=== PATIENT | female | born 1980 | race African-American/Black ===

== ENCOUNTER 2017-01-20 21:34 | Emergency (ER) | payer MEDICAID ==
[2017-01-20 21:48] VITALS: BP 102/69; PULSE 69; RESP 16; TEMP 98.6; O2SAT 100
[2017-01-20] MEDS ORDERED: TRIAMCINOLONE ACETONIDE 40 MG/ML VIAL MISC ONE (22:06)
--- NOTE | 2017-01-20 22:27 | UCPHY ---
H & P Time Seen by Provider: 01/20/17 21:49 Patient Type: Established HPI/ROS: This patient presents with left knee arthralgia 8/10 intensity achy baseline sharp with walking. She has had similar pains in this knee in the past in the history of meniscal injury with arthroscopic P by Dr. Ernst. She has had improvement with a steroid injection in the past. It has been 2 years or so since the last steroid injection. She attributes some of the worsening pain to climbing 3 flights of stairs to her apartment where she lives on a daily basis. No acute injury. ROS: No fevers. No other constitutional symptoms. No other joint pain. No feeling of instability to the knee. No significant swelling. 7 point ROS is otherwise negative. Past Medical/Surgical History: She had a normal knee x-ray here few years ago. Meniscal injury to the left knee Ultrasound of L. lower extremity 3 years ago negative for Mendes cyst or DVT. Smoking Status: Never smoked Physical Exam: Physical Exam Vital signs are normal. General: Pleasant obese black female No acute distress HEENT: Atraumatic. Eyes: Pupils equal and react to light. Extraocular motions are intact. Lungs: No respiratory distress. Cardiac: Brisk capillary refill is intact throughout. Pulses are 2+ and symmetric in the affected extremity. Skin: No rash or pallor. Extremities: Atraumatic and normal except for left knee Left knee: Mild medial tenderness. Akanksha's is negative for laxity. Varus and valgus stress without significant pain or laxity. No significant effusion. No pain with lateral movement of her patella and no patellar crepitance. Neuro: Alert and oriented x3 with no sensorimotor deficits. Differential diagnosis: Meniscal arthropathy, doubt patellofemoral syndrome Constitutional: Initial Vital Signs Temperature (C) 37 C 01/20/17 21:46 Heart Rate 69 01/20/17 21:46 Respiratory Rate 16 01/20/17 21:46 Blood Pressure 102/69 01/20/17 21:46 O2 Sat (%) 100 01/20/17 21:46 O2 Delivery Mode Room Air Allergies/Adverse Reactions: No Known Allergies Allergy (Verified 11/08/14 18:05) Home Medications: Medication Instructions Recorded Levothyroxine 01/20/17 MDM/Departure - MDM Procedures: Steroid injection of knee: After verbal consent, chlorhexidine scrub with lateral approach with standard sterile precautions, I placed an 18 gauge needle in the left knee joint space with return of only a cm or 2 of fluid. This is blood tinged. I then injected 40 mg of Kenalog mixed with 10 mg of Marcaine the fluid easily without resistance. Patient tolerated this well. Band-Aid in the strep then applied. There were no complications. Patient is also treated with ibuprofen 600 mg. She will follow up with Dr. Ernst for any ongoing symptoms Medications Given: Discontinued Medications Triamcinolone Acetonide (Kenalog-40) 40 mg [facility] [place] ONE Stop: 01/20/17 22:07 Last Admin: 01/20/17 22:30 Dose: 40 mg - Depart Disposition: Home, Routine, Self-Care Clinical Impression: Arthralgia of knee, left Clinical Impression: (Ruled Out): Arthralgia of knee, right Condition: Good Instructions: Knee Pain (ED) Additional Instructions: Diagnosis: Left knee arthralgia Tonight you received 40 mg of Kenalog steroid and 10 mL of Marcaine anesthesia 2 your left knee. You should not have steroids for the next 6 months in that knee Plan: [place]en wrap Ice Continue with ibuprofen-600 mg per 6 hours Follow up with Dr. Ernst-orthopedic surgeon for any ongoing symptoms despite the plan. Referrals: NONE *PRIMARY CARE P,. [Primary Care Provider] - As per Instructions Patricia Ernst MD [Medical Doctor] - As per Instructions - PQRS PQRS Measurement: NA
== END 2017-01-20 22:39 | disposition home or self-care (01) ==
LOC: CED 21:34
PROC: 0S9D3ZZ Drainage of Left Knee Joint, Percutaneous Approach (ICD-10-PCS; principal; 2017-01-20)
PROC: 3E0U33Z Introduction of Anti-inflammatory into Joints, Percutaneous Approach (ICD-10-PCS; 2017-01-20)
DX: M25.562 Pain in left knee (principal)
CPT/HCPCS: 20610-PO; 99214-PO; G0463-PO; J3301

== ENCOUNTER 2017-02-27 22:33 | Emergency (ER) | payer MEDICAID ==
[2017-02-27 22:44] VITALS: BP 113/72; PULSE 77; RESP 16; TEMP 98.2; O2SAT 98
--- NOTE | 2017-02-27 22:46 | UCPHY ---
H & P Time Seen by Provider: 02/27/17 22:41 Patient Type: Established HPI/ROS: This patient has a right upper inner lip sore that she has never had before. She is uncertain if this is a canker sore something else and came in for evaluation. She reports moderate pain. Symptoms been present for few days. She thinks it is getting larger. ROS: No fevers. No dental pain. No lip lesions externally. 5 point ROS is otherwise negative. Past Medical/Surgical History: Otherwise healthy Smoking Status: Never smoked Physical Exam: Physical Exam Vital signs are normal. General: No acute distress HEENT: Intraoral exam: Patient has a 8 mm superficial abrasion to the right upper inner lip mucosa without any other intraoral lesions. There is no beefy redness, discharge, fluctuance or other abnormal findings. Eyes: Pupils equal and react to light. Extraocular motions are intact. Lungs: No respiratory distress. Cardiac: Brisk capillary refill is intact throughout. Skin: No rash or pallor. Neuro: Alert with no focal deficits appreciated. Constitutional: Initial Vital Signs Temperature (C) 36.8 C 02/27/17 22:41 Heart Rate 77 02/27/17 22:41 Respiratory Rate 16 02/27/17 22:41 Blood Pressure 113/72 02/27/17 22:41 O2 Sat (%) 98 02/27/17 22:41 O2 Delivery Mode Room Air Allergies/Adverse Reactions: No Known Allergies Allergy (Verified 11/08/14 18:05) Home Medications: Medication Instructions Recorded NK [No Known Home Meds] 02/27/17 Medical Decision Making ED Course/Re-evaluation: Findings are consistent with a simple aphthous ulcer. I counseled patient regarding this. Departure - Departure Disposition: Home, Routine, Self-Care Clinical Impression: Oral aphthous ulcer Condition: Good Instructions: Canker Sores (ED) Additional Instructions: Diagnosis: Canker sore Plan: Try supplemental Lysine. Try [id number] oral base canker sore medication to apply topically Avoid a lot of fruits that may be high and citric acid until symptoms resolve Symptoms should improve over the next 3-10 days Referrals: NONE *PRIMARY CARE P,. [Primary Care Provider] - As per Instructions - PQRS PQRS Measurement: NA
== END 2017-02-27 22:53 | disposition home or self-care (01) ==
LOC: CED 22:33
DX: K12.0 Recurrent oral aphthae (principal)
CPT/HCPCS: 99213-PO; G0463-PO

== ENCOUNTER 2017-03-25 22:06 | Emergency (ER) | payer MEDICAID ==
[2017-03-25 22:24] VITALS: BP 113/72; PULSE 73; RESP 16; TEMP 97.9; O2SAT 99
[2017-03-25] MEDS ORDERED: HYDROCODONE/APAP 5/325 TAB PO ONE (22:34)
--- NOTE | 2017-03-25 22:47 | UCPHY ---
H & P Time Seen by Provider: 03/25/17 22:31 Patient Type: Established HPI/ROS: This patient complains of pain and slight swelling the left fossa. She reports achiness to her knee associated with this 8/10 peak intensity currently moderate. Symptoms worsened a bit when she is walking. She took ibuprofen 11: 00 a.m. with partial improvement and notes no other exacerbating factors. She has associated history of meniscal injury in the same knee with intermittent knee effusions. Currently she denies any significant knee swelling ROS: No acute trauma. No fevers or chills. No posterior calf pain. No chest pain shortness of breath or lightheadedness. No heart palpitations. 7 point ROS is otherwise negative. Smoking Status: Never smoked Physical Exam: Physical Exam Vital signs are normal. General: Pleasant black female No acute distress Eyes: Pupils equal and react to light. Extraocular motions are intact. Lungs: No respiratory distress. Cardiac: Brisk capillary refill is intact throughout. Pulses are 2+ and symmetric in the affected extremity. Extremities: Atraumatic normal except for left knee Left knee: Patient has very mild swelling to the left popliteal fossa with tenderness. The anterior knee exam appears normal with no knee effusion. She retains full range of motion. There is no crepitance. No ligamentous instability with Akanksha's, varus or valgus stress. No warmth to touch. She has no calf swelling or tenderness. Homans is negative. Skin: No rash or pallor. Neuro: Alert with no sensorimotor deficits in the affected extremity. Constitutional: Initial Vital Signs Temperature (C) 36.6 C 03/25/17 22:12 Heart Rate 73 03/25/17 22:12 Respiratory Rate 16 03/25/17 22:12 Blood Pressure 113/72 03/25/17 22:12 O2 Sat (%) 99 03/25/17 22:12 O2 Delivery Mode Room Air Allergies/Adverse Reactions: No Known Allergies Allergy (Verified 03/25/17 22:19) Home Medications: Medication Instructions Recorded traMADol [Ultram 50 mg (*)] 50 - 100 mg PO Q4 PRN #20 tab 03/25/17 MDM/Departure - MDM Medications Given: Discontinued Medications Hydrocodone Bitart/Acetaminophen ([place] 5/325) 2 tab PO EDNOW ONE Stop: 03/25/17 22:35 Last Admin: 03/25/17 22:41 Dose: 2 tab - Depart Disposition: Home, Routine, Self-Care Clinical Impression: Bakers cyst Qualifiers: Laterality: left Qualified Code(s): M71.22 - Synovial cyst of popliteal space [ Mendes], left knee Condition: Good Instructions: Bakers Cyst (ED) Additional Instructions: Diagnosis: Mendes cyst left knee Plan: Ibuprofen-600 mg per 6 hours as needed and Tylenol or tramadol in addition. Limit activity as needed D[place]en wrap for comfort Call Dr. Ernst to arrange follow-up appointment Good the emergency department for any significant worsening despite the treatment plan Gentle stretches of her hamstring and quadriceps muscles each day Prescriptions: traMADol [Ultram 50 mg (*)] 50 - 100 mg PO Q4 PRN #20 tab PRN Reason: Pain, Breakthrough Referrals: NONE *PRIMARY CARE P,. [Primary Care Provider] - As per Instructions - PQRS PQRS Measurement: NA
== END 2017-03-25 22:52 | disposition home or self-care (01) ==
LOC: CED 22:06
DX: M71.22 Synovial cyst of popliteal space [Baker], left knee (principal)
CPT/HCPCS: 99214-PO; G0463-PO

== ENCOUNTER 2017-05-15 11:14 | Emergency (ER) | payer MEDICAID ==
[2017-05-15 11:24] VITALS: RESP 16; TEMP 97.9
[2017-05-15] MEDS ORDERED: ONDANSETRON DISINTEGRATING 4 MG TAB PO ONE (11:31)
--- NOTE | 2017-05-15 11:37 | EDPHY ---
H & P Time Seen by Provider: 05/15/17 11:26 HPI/ROS: HPI Lightheaded, shaking, nausea. 36-year-old female by private vehicle. This patient reports that she has chronic left knee pain. Secondary to her left knee pain and wanting to sleep, she took 1 of her 's morphine pills early this morning. She then woke up feeling lightheaded feeling shaky all over and having some nausea. She has not vomited. She denies any focal weakness or altered sensation in her extremities. No history of trauma. No other ingestions. Denies alcohol. No other complaints. ROS: Constitutional: No fever, no chills. As above. Eyes: No discharge. No changes in vision. ENT: No sore throat. No nasal congestion or rhinorrhea. Respiratory: No cough. No shortness of breath. Cardiac: No chest pain, no palpitations. Gastrointestinal: No abdominal pain, no vomiting, no diarrhea. As above. Genitourinary: No hematuria. No dysuria or increased frequency with urination. Musculoskeletal: No back pain. No neck pain. No myalgias or arthralgias. Skin: No rashes. Neurological: No headache. No focal weakness or altered sensation. Past medical history: Hypothyroid, left knee surgery, chronic left knee pain. Alfaro. Social history: . Here by herself. Physical Exam: General Appearance: Alert, no distress. This patient is responding to questions appropriately and in full sentences. This patient appears well- hydrated and well-nourished. Eyes: Pupils equal and round no pallor or injection. No lid edema, erythema or injection. Respiratory: There are no retractions, lungs are clear to auscultation with good air movement bilaterally. Cardiovascular: Regular rate and rhythm. No murmur. Gastrointestinal: Abdomen is soft and nontender, no masses, bowel sounds normal. No focal tenderness at McBurney's point. No Hastings sign. Neurological: Motor sensory function is grossly intact. Cranial nerves are normal. Gait is normal. Skin: Warm and dry, no rashes. Musculoskeletal: Neck is supple and nontender. Extremities are symmetrical. All joints range without pain or impingement. Psychiatric: No agitation. No depression. Database: EKG: Imaging: Procedures: Emergency department course: After my evaluation, she was given 4 mg of ODT Zofran. Vital signs have been reviewed and are unremarkable. She is afebrile. 11:45 a.m., patient given an oral fluid challenge. She is feeling better at this time. 11:55 a.m., patient feeling better. She is up and ambulatory with a normal gait. She feels comfortable going home. Follow-up and return to emergency department precautions discussed with her. She has been instructed to avoid any narcotic pain medications not take her 's pain medications. All of her questions were answered. She was discharged in good condition. Differential Diagnosis: The differential diagnosis on this patient includes but is not limited to medication reaction to oral morphine. CVA, anaphylaxis, alcohol intoxication unlikely. This represents a partial list of diagnoses considered. These considerations are based on history, physical exam, past history, reassessment and diagnostic testing. Smoking Status: Never smoked Constitutional: Initial Vital Signs Temperature (C) 36.6 C 05/15/17 11:20 Heart Rate 75 05/15/17 11:20 Respiratory Rate 16 05/15/17 11:20 Blood Pressure 95/63 L 05/15/17 11:20 O2 Sat (%) 98 05/15/17 11:20 O2 Delivery Mode Room Air Allergies/Adverse Reactions: No Known Allergies Allergy (Verified 05/15/17 11:24) Home Medications: Medication Instructions Recorded traMADol [Ultram 50 mg (*)] 50 - 100 mg PO Q4 PRN #20 tab 03/25/17 Levothyroxine 05/15/17 Departure - Departure Disposition: Home, Routine, Self-Care Clinical Impression: Medication reaction Condition: Good Instructions: Narcotic Pain Management (ED) Additional Instructions: Read and follow provided instructions. Follow-up with your primary care physician in 1-2 days for re-evaluation as needed. Only take medications as prescribed to yourself. Ibuprofen dosin mg every 6 hours with meals for the next 3 days only. Return to the emergency department for worsening symptoms or other serious concerns. Referrals: MD SAGE [Other] - As per Instructions
[2017-05-15 12:39] VITALS: BP 104/67; PULSE 70; O2SAT 97
== END 2017-05-15 12:25 | disposition home or self-care (01) ==
LOC: CED 11:14
DX: R42 Dizziness and giddiness (principal); T40.2X5A Adverse effect of other opioids, initial encounter

== ENCOUNTER 2017-11-27 17:54 | Emergency (ER) | payer MEDICAID ==
[2017-11-27 18:03] VITALS: BP 117/76; PULSE 62; RESP 16; TEMP 98.1; O2SAT 98
--- NOTE | 2017-11-27 18:16 | EDPHY ---
H & P Time Seen by Provider: 11/27/17 18:01 HPI/ROS: CHIEF COMPLAINT: Left jaw pain and swelling History by patient HISTORY OF PRESENT ILLNESS: 36-year-old woman presents complaining of pain and swelling in left side of her jaw for the past 24 hr. There has been no trauma. She denies any tooth pain. There has been no drainage in her mouth. Pain is worse when she tries to eat or open her mouth wide. She has never had this before. She denies any fever chills. She is otherwise feeling well. She is not currently on any medications other than multivitamins. She was recently diagnosed with hemolytic anemia for which she is following up with a reimbursement consultant at [place]. REVIEW OF SYSTEMS: As in HPI, and all other systems reviewed and are negative Smoking Status: Never smoked Physical Exam: General Appearance: Alert and no distress. Head: normocephalic, atraumatic, no sinus tenderness, positive left facial swelling with mild tenderness, no erythema or warmth Eyes: Pupils equal and round no injection. Ears: TM clear bilat OP: mucus membranes moist, no tonsillar enlargement, no exudates, no swelling of the floor of the mouth, positive tenderness in the area of left parotid duct , no drainage or purulence Neck: no meningismus, no cervical nodes, no submandibular nodes Respiratory: Chest is nontender, lungs are clear to auscultation. Cardiac: regular rate and rhythm. Gastrointestinal: Abdomen is soft and nontender, no masses, bowel sounds normal. Musculoskeletal: Neck is supple and nontender. Extremities have full range of motion and are nontender. Skin: No rashes or lesions. Constitutional: Initial Vital Signs Temperature (C) 36.7 C 11/27/17 18:00 Heart Rate 62 11/27/17 18:00 Respiratory Rate 16 11/27/17 18:00 Blood Pressure 117/76 11/27/17 18:00 O2 Sat (%) 98 11/27/17 18:00 O2 Delivery Mode Room Air Allergies/Adverse Reactions: No Known Allergies Allergy (Verified 11/27/17 18:03) Home Medications: Medication Instructions Recorded NK [No Known Home Meds] 11/27/17 MDM/Departure - [facility] ED Course/Re-evaluation: 36-year-old presents with left-sided jaw pain and swelling. Patient is afebrile nontoxic-appearing and in no evidence for infectious cause. I suspect acute siloadentitis of parotid gland non infectious etiology. We discussed treatment with sialagogues, or moist heat and ibuprofen. Patient is a [place] patient can follow up with Ear Nose Throat specialist if there is no improvement with these measures. We also discussed return precautions including but not limited to fever, pain out of control or other concerns. - Depart Disposition: Home, Routine, Self-Care Clinical Impression: Acute parotitis Condition: Good Instructions: Parotid Duct Obstruction (ED), Sialoadenitis (ED) Additional Instructions: You were seen by Dr. Elif Wu today. You have a swollen and inflamed parotid (salivary) gland. It may be blocked by a stone. Please suck on sour candy. Apply warm, moist heat and take ibuprofen 4-600 mg every 6 hr for pain. Please follow up with Ear Nose Throat specialist at [place] if there is no improvement in the next 2 days and sooner if you develops fever, uncontrolled pain or other new concerning symptoms. Return for any worsening or new concerns. Referrals: NONE *PRIMARY CARE P,. [Primary Care Provider] - As per Instructions
== END 2017-11-27 18:21 | disposition home or self-care (01) ==
LOC: CED 17:54
DX: K11.21 Acute sialoadenitis (principal)

== ENCOUNTER 2018-09-30 16:32 | Emergency (ER) | payer MEDICAID ==
[2018-09-30 16:42] VITALS: BP 111/65
--- NOTE | 2018-09-30 16:55 | EDPHY ---
H & P Time Seen by Provider: 09/30/18 16:44 HPI/ROS: CHIEF COMPLAINT: "Toenail fell off" HISTORY OF PRESENT ILLNESS: The patient is a 29-year-old female who presents emergency department having both her 2nd toe toenail fall off yesterday. Patient denies any trauma. She does not wear any tight fitting shoes. She denies any itching, redness or pain. She has not had this happen before. She has no other complaints. REVIEW OF SYSTEMS: Negative Past Medical/Surgical History: Denies Smoking Status: Never smoked Physical Exam: Vitals noted General Appearance: Alert and no distress. Head: Pupils equal. Normal. Respiratory: No respiratory distress. Cardiac: regular rate and rhythm. Extremities: Of note, the patient's 2nd toe is longer than the 1st on both feet. The toenail is slightly often irregular at the tip. The base of the toenail is intact. There is some dark coloration of the toenail. No tenderness palpation. No redness. No streaking up the foot. No visible signs skin scaling or abnormality. No lower extremity swelling. Skin: No rashes or lesions. Neuro: Alert. Normal mood and affect. Constitutional: Initial Vital Signs Temperature (C) 36.8 C 09/30/18 16:36 Heart Rate 78 09/30/18 16:36 Respiratory Rate 16 09/30/18 16:36 Blood Pressure 111/65 09/30/18 16:36 O2 Sat (%) 95 09/30/18 16:36 O2 Delivery Mode Room Air Allergies/Adverse Reactions: No Known Allergies Allergy (Verified 09/30/18 16:34) Home Medications: Medication Instructions Recorded Diclofenac Sodium 09/30/18 Folic Acid 09/30/18 Medical Decision Making ED Course/Re-evaluation: In the emergency department I discussed possible etiologies with the patient. I answered all her questions. She was instructed to use Lotrimin cream on her toenails. She will follow up with Podiatry. She is given contact information. She will return with worsening symptoms. Differential Diagnosis: My differential includes but is not limited to tinea infection, pressure injury , trauma, cellulitis Departure - Departure Disposition: Home, Routine, Self-Care Clinical Impression: Tinea unguium Condition: Good Instructions: Athlete's Foot (ED) Additional Instructions: Apply Lotrimin cream to you're toenails twice daily (over-the counter medication ). You been given follow-up information with the soft metals hand engraver. If your symptoms do not change make appointment to see the soft metals hand engraver for further evaluation. Referrals: ARNULFO JULIAN [Other] - Follow Up Only If Needed Ramos Barlow MD [Doctor of Podiatric Medicine] - As per Instructions
== END 2018-09-30 17:05 | disposition home or self-care (01) ==
LOC: CED 16:32
DX: B35.1 Tinea unguium (principal)

== ENCOUNTER 2018-11-21 19:43 | Emergency (ER) | payer MEDICAID ==
--- NOTE | 2018-11-21 20:49 | EDPHY ---
H & P Stated Complaint: Cough, fever, GONZALEZ. Time Seen by Provider: 11/21/18 19:56 HPI/ROS: 37-year-old female presents complaining cough, runny nose, sore throat, body aches. She states she has been having these symptoms for approximately 10 days and initially she had fevers and chills but no longer is having fevers. Review of systems As per HPI General no fever no chills no weakness HEENT no eye pain no eye discharge. No eye redness, positive sore throat Respiratory positive cough, positive URI symptoms, no shortness of breath Cardiac no chest pain, no peripheral edema GI no abdominal pain, no diarrhea, no constipation, no nausea, no vomiting no flank pain, no hematuria, no dysuria Musculoskeletal no myalgias, no joint pain Heme no easy bruising, no easy bleeding Endo no polyuria, no polydipsia Skin no rashes, no pruritus Neuro no syncope, no dizziness, positive headaches Psych is no suicidal ideation, no homicidal ideation Source: Patient, Family Exam Limitations: No limitations - Personal History Current Tetanus/Diphtheria Vaccine: Unsure Current Tetanus Diphtheria and Acellular Pertussis (TDAP): Unsure Tetanus Vaccine Date: < 10 years - Medical/Surgical History Hx Asthma: No Hx Chronic Respiratory Disease: No Hx Diabetes: No Hx Cardiac Disease: No Hx Renal Disease: No Hx Cirrhosis: No Hx Alcoholism: No Hx HIV/AIDS: No Hx Splenectomy or Spleen Trauma: No Other PMH: hypothyroid, left knee meniscus surgery 2010, work up for hemolytic anemia. Appendectomy 2013, bronchitis as a child. - Family History Significant Family History: No pertinent family hx - Social History Smoking Status: Never smoked Alcohol Use: None Drug Use: None - Physical Exam Exam: 37-year-old female Alert and oriented nontoxic appearance, no acute distress afebrile Atraumatic normocephalic Extraocular muscles intact, anicteric Nares mild yellowish discharge Oropharynx mild erythema no tonsillar swelling no exudate no uvular deviation, tolerating own secretions Neck supple no lymphadenopathy Lungs clear to auscultation bilaterally Heart regular rate and rhythm Abdomen normoactive bowel sounds soft nontender Extremities no cyanosis clubbing or edema Skin no rash Constitutional: Initial Vital Signs Temperature (C) 36.9 C 11/21/18 19:56 Heart Rate 70 11/21/18 19:56 Respiratory Rate 18 11/21/18 19:56 Blood Pressure 107/76 11/21/18 19:56 O2 Sat (%) 96 11/21/18 19:56 O2 Delivery Mode Room Air Allergies/Adverse Reactions: No Known Allergies Allergy (Verified 11/21/18 19:55) Home Medications: Medication Instructions Recorded Folic Acid 09/30/18 Medical Decision Making ED Course/Re-evaluation: Patient seen and evaluated for cough, runny nose, sore throat, mild headache. This has been persistent for approximately 10 days. Rapid strep negative Influenza negative Chest x-ray negative Patient given acetaminophen 1 g p.o. For headache. imp viral syndrome plan dc home symptomatic care rest, fluids, acetaminophen or ibuprofen as needed return if worse f/u pcp Differential Diagnosis: Differential diagnosis considered but not limited to: URI, pharyngitis, sinusitis, bronchitis, influenza, strep pharyngitis, viral syndrome, pneumonia - Data Points Medications Given: Discontinued Medications Acetaminophen (Tylenol) 1,000 mg PO EDNOW ONE Stop: 11/21/18 21:18 Last Admin: 11/21/18 21:39 Dose: 1,000 mg Point of Care Test Results: Influenza PCR Flu Nasal Swab Collection Date 11/21/18 Flu Nasal Swab Collection Time 20:18 Influenza A Result Not Detected Influenza B Result Not Detected Strep Strep Throat Swab Collection 11/21/18 Date Strep Throat Swab Swab 20:19 Collection Time Strep Result Not Detected Departure - Departure Disposition: Home, Routine, Self-Care Clinical Impression: Acute viral syndrome Condition: Good Instructions: Viral Syndrome (ED) Referrals: CLINICA,LINDY [Other] - As per Instructions Stand Alone Forms: Work Excuse
[2018-11-21] MEDS ORDERED: ACETAMINOPHEN 500 MG TAB PO ONE (21:17)
[2018-11-21 21:51] VITALS: BP 121/70
== END 2018-11-21 21:49 | disposition home or self-care (01) ==
LOC: CED 19:43
DX: B34.9 Viral infection, unspecified (principal)
CPT/HCPCS: 71046-PO